=== PATIENT | female | born 1970 | race Caucasian/White ===

== ENCOUNTER → 2024-07-05 10:35 | Outpatient (BNVA) | payer OTHER, SELFPAY | PROVIDERS: PCP Internal Medicine; Visit Provider Physician Assistant Medical | DX: T22.211A Burn of second degree of right forearm, initial encounter (principal); X13.1XXA Other contact with steam and other hot vapors, initial encounter; Z53.09 Procedure and treatment not carried out because of other contraindication | CPT/HCPCS: 90715; 99203 ==

== ENCOUNTER → 2024-07-07 14:15 | Outpatient (BNVA) | payer OTHER, SELFPAY | PROVIDERS: PCP Internal Medicine; Visit Provider Physician Assistant Medical | DX: T22.211A Burn of second degree of right forearm, initial encounter (principal); X13.1XXA Other contact with steam and other hot vapors, initial encounter | CPT/HCPCS: 97597; 99213 ==

== ENCOUNTER → 2024-07-12 09:51 | Outpatient (BNVA) | payer OTHER, SELFPAY | PROVIDERS: PCP Internal Medicine; Visit Provider Internal Medicine | DX: T22.211D Burn of second degree of right forearm, subsequent encounter (principal); X13.1XXD Other contact with steam and other hot vapors, subsequent encounter | CPT/HCPCS: 99213 ==

== ENCOUNTER → 2024-07-20 10:38 | Outpatient (BNVA) | payer OTHER, SELFPAY | PROVIDERS: PCP Internal Medicine; Visit Provider Physician Assistant Medical | DX: T22.212D Burn of second degree of left forearm, subsequent encounter (principal); X13.1XXD Other contact with steam and other hot vapors, subsequent encounter | CPT/HCPCS: 99213 ==

== ENCOUNTER → 2024-07-28 09:37 | Outpatient (BNVA) | payer OTHER, SELFPAY | PROVIDERS: PCP Internal Medicine; Visit Provider Physician Assistant Medical | DX: T22.211D Burn of second degree of right forearm, subsequent encounter (principal); X13.1XXD Other contact with steam and other hot vapors, subsequent encounter | CPT/HCPCS: 99213 ==

== ENCOUNTER → 2024-08-04 09:35 | Outpatient (BNVA) | payer OTHER, SELFPAY | PROVIDERS: PCP Internal Medicine; Visit Provider Physician Assistant Medical | DX: T22.211D Burn of second degree of right forearm, subsequent encounter (principal); X13.1XXD Other contact with steam and other hot vapors, subsequent encounter; Z02.79 Encounter for issue of other medical certificate | CPT/HCPCS: 99213 ==

== ENCOUNTER → 2024-08-23 10:37 | Outpatient (BNVA) | payer OTHER, SELFPAY | PROVIDERS: PCP Internal Medicine; Visit Provider Physician Assistant Medical | DX: T22.211D Burn of second degree of right forearm, subsequent encounter (principal); X13.1XXD Other contact with steam and other hot vapors, subsequent encounter | CPT/HCPCS: 99213 ==

== ENCOUNTER → 2024-08-26 14:54 | Outpatient (BNVA) | payer OTHER, SELFPAY | PROVIDERS: PCP Internal Medicine; Visit Provider Physician Assistant Medical | DX: T22.211D Burn of second degree of right forearm, subsequent encounter (principal); X13.1XXD Other contact with steam and other hot vapors, subsequent encounter | CPT/HCPCS: 99213 ==

== ENCOUNTER → 2024-09-01 11:24 | Outpatient (BNVA) | payer OTHER, SELFPAY | PROVIDERS: PCP Internal Medicine; Visit Provider Physician Assistant Medical | DX: T22.211D Burn of second degree of right forearm, subsequent encounter (principal); X13.1XXD Other contact with steam and other hot vapors, subsequent encounter; Z02.79 Encounter for issue of other medical certificate | CPT/HCPCS: 99213 ==

== ENCOUNTER 2025-05-03 10:14 | Outpatient (AMB) | payer OTHER, SELFPAY ==
--- NOTE | 2025-05-03 10:21 | A.OFFPC_ITS ---
Vital Signs 05/03/25 10:23 Height 5 ft 3 in Weight 213 lb 4 oz BMI 37.8 BP 124/80 Blood Pressure Location Rt brachial Position Sitting Respiration 16 Pulse 73 Pulse Source Pulse Oximeter Temp 96.9 F Temp Source Temporal Artery Scan Pulse Oximetry (%) 96 Oxygen Delivery Method Room Air Intake Visit Reasons: JULIO/Croke, needs mammo referral Extrusion Press Adjuster Required: No Accompanied by: Mother Allergies No Known Allergies Allergy (Verified 05/03/25 10:21) Medication List - Last Reconciled 05/03/25 by Shivam Abarca MD No Known Home Meds Tobacco use date assessed: 05/03/25 Dental Screening Dental Screen Date: 05/03/25 Did you have a dental visit in the last 12 months?: No Did you have a dental problem in the last 6 months where you did not have access to dental care?: No Was dental information given to patient?: Patient has dentist HPI HPI Comments History of Present Illness Details History of Present Illness The patient is a 54 year old female presenting for a new patient visit and physical examination, and for evaluation of left breast pain and right-sided abdominal pain. 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 In April 2023, she underwent a uterine biopsy due to an enlarged uterus, which was found to be non-cancerous. She reports the onset of intermittent left breast pain within the last couple of weeks, which she feels may be related to her posture when sitting. She denies any nipple discharge or palpable lumps. She also describes a pain on her right side, higher than the hip, which typically occurs a couple of hours after eating and is not present in the morning. 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 She reports sleeping only about five hours per night and has a history of sleep studies, but declined CPAP therapy. She reports allergies to nuts and fish, which cause a rash, pruritus, and dyspnea. She denies any history of smoking, alcohol use, or illicit drug use. Her diet is described as not optimal, and she tends to eat quickly. For preventative care, she is aware she needs a mammogram but does not recall the date of her last one. She has never had a colonoscopy and is aware she is overdue at age 54. She has received prior COVID-19 vaccinations but has not had one this year and declines the influenza vaccine. 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 Medications: - The patient is not taking any medicati ons. Family History: - Father: history of diabetes, a heart a ttack, and lung cancer (). - Paternal grandmother: history of colon cancer. - Mother: age 86, has a pacemaker and de mentia. - Maternal grandfather: lived into his 9 0s. Diagnostic Results: - Uterine biopsy (April 2023): Negati ve for malignancy. Social History - Substance Use: Denies smoking, alcohol use, and illicit drug use. - Employment: Works full-time. - Functional Status: Serves as the full- time caregiver for her mother, who has dementia. - Sleep: Reports sleeping approximately 5 hours per night. - Nutrition: Describes her diet as subop timal and reports being a quick eater. 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 1. Little interest or pleasure in doing things: not at all 2. Feeling down, depressed, or hopeless: not at all 3. Trouble falling or staying asleep, or sleeping too much: several days 4. Feeling tired or having little energy: not at all 5. Poor appetite or overeating: nearly every day 6. Feeling bad about yourself - or that you are a failure or have let yourself or your family down: not at all 7. Trouble concentrating on things, such as reading the newspaper or watching television: several days 8. Moving or speaking so slowly that other people could have noticed. Or the opposite - being so fidgety or restless that you have been moving around a lot more than usual: not at all 9. Thoughts that you would be better off or of hurting yourself in some way: not at all Total score: 5 Depression Screening Interpretation: Negative Depression Screening Done: Yes 28709 - PHQ-9 Billing: Yes Source: Developed by Drs. Angel Narayanan, Daysi De La Cruz, Isreal Desir and colleagues, with an educational cory from [employer]. Thrive Questionnaire Date Thrive assessed: 05/03/25 I am a: Patient What is your living situation today?: I have a steady place to live Within the past 12 months, did the food you bought not last and you didn't have the money to get more?: Never true Within the past 12 months, did you worry whether your food would run out before you got money to buy more?: Never true Do you have trouble paying for medicines?: No Do you have trouble getting transportation to medical appointments?: No Do you have trouble paying your heating and electricity bill?: No Do you have trouble taking care of your child, family member or friend?: Yes Do you have trouble with day-to-day activities such as bathing, preparing meals, shopping, managing finances, etc.?: No Are you currently unemployed and looking for a job?: No Are you interested in more education?: Yes THRIVE Score: 0 AUDIT C Alcohol Use Questionnaire (AUDIT-C) 1. How often do you have a drink containing alcohol?: Never 3. How often do you have six or more drinks on one occasion?: Never Total Score: 0 Score Reviewed/Action Taken: Yes GLENNA-7 AMB Questionnaire GLENNA-7 Date GLENNA - 7 assessed: 05/03/25 Feeling nervous, anxious, or on edge: 1 = Several days Not being able to stop or control worryin = Several days Worrying too much about different things: 1 = Several days Trouble relaxin = Several days Being so restless that it is hard to sit still: 0 = Not at all Becoming easily annoyed or irritable: 1 = Several days Feeling afraid as if something awful might happen: 1 = Several days Total GLENNA-7 score (0-4 normal; 5-9 mild; 10-14 moderate; 15-21 severe): 6 Source: Developed by Drs. Angel Narayanan, Daysi De La Cruz, Isreal Desir and colleagues, with an educational cory from [employer]. GLENNA-7 Assessment Billing GLENNA-7 Assessment Tool: GLENNA-7 Assessment 60150 Review of Systems Narrative Review of Systems - Breasts: Reports intermittent left breast pain for the past couple of weeks. Denies nipple discharge or palpable lumps. - Gastrointestinal: Reports right-sided pain a couple of hours after eating. Reports multiple bowel movements daily. Denies constipation. - Musculoskeletal: Reports pain in the right hip. - Eyes: Reports a history of an eye stroke in the left eye. - Gynecological: Reports a history of an enlarged uterus and has not yet entered menopause. - Psychiatric: Reports symptoms of depression and anxiety related to caregiver stress. - Constitutional: Reports sleeping about 5 hours per night. - Allergic/Immunologic: Reports rash, pruritus, and dyspnea with ingestion of nuts and fish. All systems reviewed & are unremarkable except as reviewed in HPI and above Physical exam (Primary Care) Vital Signs: Last Vital Signs Temp 96.9 F 05/03/25 10:23 Pulse 73 05/03/25 10:23 Resp 16 05/03/25 10:23 BP 124/80 05/03/25 10:23 Pulse Ox 96 05/03/25 10:23 Oxygen Delivery Method Room Air 05/03/25 10:23 BMI result Body Mass Index 37.8 Tobacco/Smoking Status: Tobacco use Status Tobacco use date assessed 05/03/25 05/03/25 10:28 Patient Tobacco Use Status Never used Tobacco 05/03/25 10:28 e-Cigarette/Vaping Use Never Used 05/03/25 10:28 PHQ-9: PHQ-9 Score PHQ-9: Total score 5 05/03/25 10:36 Depression Screening Interpretation: Negative Thrive Assessment: Date of Thrive Assessment Date Thrive assessed 05/03/25 05/03/25 10:36 Narrative Physical Exam General: Alert and oriented, Well nourished, No acute distress. Eye: Pupils are equal, round and reactive to light, Intact accommodation, Extraocular movements are intact, Normal conjunctiva, Vision unchanged. HENT: Normocephalic, Atraumatic, Tympanic membranes are clear, Normal hearing, Oral mucosa is moist, No pharyngeal erythema, Ear canals patent. Respiratory: Lungs CTA bilaterally, No wheeze, Respirations are non-labored. Cardiovascular: Regular rate, Regular rhythm, S1 auscultated, S2 auscultated, No murmur, Good pulses equal in all extremities, Normal peripheral perfusion, No edema. Gastrointestinal: Soft, Non-tender, Non-distended, Normal bowel sounds, No organomegaly. Reports pain in the right hip area after eating, which comes and goes. Musculoskeletal: Normal range of motion, Normal strength, No tenderness, No swelling, No deformity, Normal gait. Reports pain in the right hip area, possibly muscular. Integumentary: Warm, Dry, [place], Intact. Neurologic: Alert, Oriented, Normal sensory, Normal motor function, No focal defects, Cranial Nerves II-XII are grossly intact, Normal deep tendon reflexes. Psychiatric: Cooperative, Appropriate mood & affect, Normal judgment. Reports criteria for depression and anxiety, related to caregiving responsibilities. Coding Level of Care Code New Pt Level 3 (70935) New Pt Prev Care 40-64y(83036) Diagnoses Mastalgia N64.4 Right lower quadrant abdominal pain R10.31 Abdominal location: right lower quadrant Anxiety and depression F41.9; F32.A Annual physical exam Z00.00 Additional Codes GLENNA-7 Assessment Billing - GLENNA-7 Assessment Tool: GLENNA-7 Assessment 43398 ([id number]) PHQ-9 - 39518 - PHQ-9 Billing: Yes ([id number]) Comment [id number] Assessment & Plan Assessment & Plan (1) Mastalgia: Comment: - The patient reports intermittent pain in her left breast for the last couple of weeks without palpable lumps or nipple discharge. - A screening mammogram has been ordered for further evaluation. Code(s): N64.4 - Mastodynia Category: Medical (2) Abdominal pain: Comment: - The patient describes intermittent right-sided pain that occurs a few hours after eating. - Plan is to obtain X-rays of the abdomen and lower back to investigate. - Recommended Tylenol for pain and advised the patient to monitor for dietary triggers, such as fatty foods. Code(s): R10.9 - Unspecified abdominal pain Category: Medical Qualifiers: Abdominal location: right lower quadrant Qualified Code(s): R10.31 - Right lower quadrant pain (3) Anxiety and depression: Comment: - The patient meets criteria for anxiety and depression, which she attributes to stress from caregiving for her mother with dementia. - The patient declined any medication for these symptoms. Code(s): F41.9 - Anxiety disorder, unspecified; F32.A - Depression, unspecified Category: Medical (4) Annual physical exam: Comment: - The patient is a 54-year-old female establishing care. - Plan includes ordering comprehensive baseline lab work including CBC, meta bolic panel, lipids, HbA1c, hepatitis panel, HIV, RPR, TSH, and vitamin D. A screening mammogram and screening colonoscopy will be ordered, as she is overdue for both, with a family history of colon cancer. Code(s): Z00.00 - Encounter for general adult medical examination without abnormal findings Category: Medical Plan: Health Maintenance: - A screening mammogram has been ordered. - A screening colonoscopy has been ordered, as the patient is 54 years old with a family history of colon cancer and has not had a previous screening. - Comprehensive screening labs have been ordered, including a complete blood count, electrolytes, diabetes screen (A1c), hepatitis panel, HIV panel, cholesterol panel, urinalysis, syphilis screen, thyroid stimulating hormone, and vitamin D level. - Immunization status was reviewed; the patient declined the influenza vaccine. - The patient reports sleeping only about 5 hours per night. Patient was informed and verbally consented to the use of an ambient scribe for clinic note documentation during this visit. Vital signs reviewed. Comprehensive history, review of systems, and physical exam completed. Medications, allergies, and problem list reviewed and updated. Counseling provided on nutrition, regular exercise, sleep hygiene, and moderation of alcohol use. Discussed age-appropriate screenings (mammogram, colonoscopy, Pap, bone density) and immunizations (flu, COVID, shingles, Tdap). Screened for depression, fall risk, and home safety; no current concerns. Discussed stress management, dental and vision care, and importance of ongoing preventive follow-up. Routine labs ordered for metabolic and lipid screening. Patient educated on healthy lifestyle and agrees with the plan. Plan I explained to the patient that as this was her first visit, it would be a c omprehensive new patient examination. We discussed her presenting complaints of left breast pain and right-sided abdominal pain. I have ordered a mammogram for the breast pain and X-rays of her abdomen and lower back for the right-sided pain. I advised her to try Tylenol for pain and to observe for any dietary triggers, such as fatty foods. I emphasized the importance of a screening colonoscopy, given that she is over the recommended starting age and has a family history of colon cancer, and an order has been placed. We discussed that her questionnaire responses indicated she meets the criteria for depression and anxiety, which she feels is related to the stress of being a full-time caregiver, and she declined medication. Finally, I reviewed the plan to perform comprehensive baseline lab work today. Orders: Orders MM screening mammo BI Today Z12.31 - Encounter for screening mammogram for malignant neoplasm of breast Complete Blood Count Auto Diff Today Z00.00 - Encounter for general adult medical examination without abnormal findings Vitamin D 25-OH Total Today Z00.00 - Encounter for general adult medical examination without abnormal findings XR abdomen 1V Today M54.9 - Dorsalgia, unspecified XR lumbar spine 4V min Today M54.9 - Dorsalgia, unspecified Comprehensive Met. Panel Today Z00.00 - Encounter for general adult medical examination without abnormal findings Hemoglobin A1c Today Z00.00 - Encounter for general adult medical examination without abnormal findings Hepatitis A,B,C Profile Today Z00.00 - Encounter for general adult medical examination without abnormal findings HIV Ab/Ag Today Z00.00 - Encounter for general adult medical examination without abnormal findings Lipid Panel Today Z00.00 - Encounter for general adult medical examination without abnormal findings Microalbumin, Random (w Creat) Today Z00.00 - Encounter for general adult medical examination without abnormal findings Syphilis Screen Today Z00.00 - Encounter for general adult medical examination without abnormal findings TSH reflex Free T4 Today Z00.00 - Encounter for general adult medical examination without abnormal findings Referrals Open Access Screening Colonoscopy Referral Z12.11 - Encounter for screening for malignant neoplasm of colon Patient Instructions: - Please proceed to the lab for blood work today; no additional paperwork is needed. - Orders for your mammogram and colonoscopy have been placed; the respective facilities will contact you for scheduling. - For the pain on your right side, you can try taking Tylenol. - Pay attention to see if any specific foods, particularly fatty foods, seem to trigger your pain.
[2025-05-03 10:23] VITALS: BP 124/80; PULSE 73; RESP 16; TEMP 36.1; O2SAT 96; BMI 37.8
== END 2025-05-03 10:48 | disposition home or self-care (01) ==
LOC: HO.HMCHD 10:14
PROVIDERS: PCP Internal Medicine; Visit Provider Student in an Organized Health Care Education/Training Program
DX: Z00.00 Encounter for general adult medical examination without abnormal findings (principal); N64.4 Mastodynia; R10.31 Right lower quadrant pain; M54.9 Dorsalgia, unspecified; F41.9 Anxiety disorder, unspecified; F32.A Depression, unspecified

== ENCOUNTER 2025-05-03 10:14 | Outpatient (REF) | payer OTHER, SELFPAY | END 2025-05-03 10:15 | disposition home or self-care (01) | LOC: HO.LAB 10:14 | PROVIDERS: PCP Student in an Organized Health Care Education/Training Program; Visit Provider Student in an Organized Health Care Education/Training Program | DX: Z00.00 Encounter for general adult medical examination without abnormal findings (principal); N64.4 Mastodynia; R10.31 Right lower quadrant pain; F41.9 Anxiety disorder, unspecified; F32.A Depression, unspecified | CPT/HCPCS: 96127 ==

== ENCOUNTER 2025-05-11 14:04 | Outpatient (REF) | payer OTHER, SELFPAY | END 2025-05-11 14:05 | disposition home or self-care (01) | LOC: HO.MAMMO 14:04 | PROVIDERS: PCP Student in an Organized Health Care Education/Training Program; Visit Provider Student in an Organized Health Care Education/Training Program | DX: Z12.31 Encounter for screening mammogram for malignant neoplasm of breast (principal) | CPT/HCPCS: 77063; 77067 ==

== ENCOUNTER → 2025-05-11 14:30 | Outpatient (BNV) | payer OTHER, SELFPAY | PROVIDERS: PCP Student in an Organized Health Care Education/Training Program; Visit Provider Internal Medicine | DX: Z12.31 Encounter for screening mammogram for malignant neoplasm of breast (principal) | CPT/HCPCS: 77063; 77067 ==